=== PATIENT | female | born 1960 | race African-American/Black ===

== ENCOUNTER 2024-07-10 06:44 | Emergency (ER) | payer MEDICARE, OTHER ==
[2024-07-10 07:07] LABS: Actual Bicarbonate (HCO3v) 22.9 mEq/L (22-28); Analyzer IN Cardio CS ER; Base Excess -5.9 mEq/L (-2 - +2); Calcium, Ionized (venous) 1.18 mmol/L (1.16-1.32); Chloride (VBG) 106 mmol/L (98-106); Hematocrit-VBG 41 % (36.0-47.0); Hemoglobin (Hb) 13.8 g/dL (11.7-16.1); Potassium (VBG) 3.58 mmol/L (3.70-5.30); Puncture Site Other Site; RapidComm Collect By LAB; Sodium 142 mmol/L (133-146); pH (venous) 7.206 (7.32-7.43)
[2024-07-10] MEDS ORDERED: Aspirin Chewable 81 MG TAB ONE (07:21)
[2024-07-10] MEDS ORDERED: Nitroglycerin 0.4 MG TAB 1 EACH ONE (07:22)
[2024-07-10] MEDS ORDERED: cefTRIAXone (ROCEPHIN) 2 GM VIAL ONE (07:44)
[2024-07-10 07:55] LABS: #Basophils 0.05 10x3/uL (0.0-0.2); #Monocytes 0.39 10x3/uL (0.0-1.1); #Neutrophils 3.51 10x3/uL (1.5-8.4); %Basophils 0.7 % (0.0-2.0); %Eosinophils 1.3 % (0.0-6.0); %Lymphocytes 46.6 % (18.0-47.0); %Monocytes 5.1 % (0.0-10.0); Hematocrit 37.4 % (34.9-44.5); Hemoglobin 12.4 g/dL (12.0-15.5); Mean Corpuscular HGB CONC 33.2 g/dL (32.0-36.0); Mean Corpuscular Hemoglobin 31.9 pg (27.0-33.0); Mean Corpuscular Volume 96.1 fL (81.6-98.3); Mean Platelet Volume 10.4 fL (7.4-10.4); Platelet Count 257 10x3/uL (150-450); RBC Distribution Width 12.6 % (11.5-14.5); Red Blood Cell (RBC) Count 3.89 10x6/uL (3.90-5.03); White Blood Cell (WBC) Count 7.6 10x3/uL (3.5-10.5)
[2024-07-10 08:03] LABS: ALT (SGPT) 13 U/L (8-55); AST (SGOT) 27 U/L (5-34); Albumin 3.9 g/dL (3.4-4.8); Alkaline Phosphatase 76 U/L (40-110); Anion Gap 16 mmol/L (10-20); BUN (Urea Nitrogen) 15 mg/dL (9.8-20.1); Bilirubin, Total 0.3 mg/dL (0.2-1.2); CK (CPK) 202 U/L (29-168); Calc. Creatinine Clearance 0 mL/min (70-130); Calcium 9.3 mg/dL (7.8-10.44); Carbon Dioxide 19 mmol/L (23-31); Chloride 107 mmol/L (98-107); Estimated GFR 50; Globulin 3.3 g/dL (2.4-3.5); Glucose 176 mg/dL (80-115); Magnesium 2.5 mg/dL (1.6-2.6); Potassium 3.8 mmol/L (3.5-5.1); Protein, Total 7.2 g/dL (5.8-8.1); Sodium 138 mmol/L (136-145)
[2024-07-10 08:12] LABS: Critical Call Chem Troponin I NUR.JPM@0808
[2024-07-10 08:36] LABS: Prothrombin Time 10.4 sec (9.5-12.1)
[2024-07-10 08:47] LABS: PTT 23.2 sec (22.0-33.0)
[2024-07-10] MEDS ORDERED: Ipratropium/Albuterol 3 ML NEB ONE (08:51)
[2024-07-10] MEDS ORDERED: Heparin 25,000 units/D5W 500 ML ONE (08:59)
[2024-07-10] MEDS ORDERED: Furosemide 40 MG (4 mL) VIAL ONE (08:59)
[2024-07-10] MEDS ORDERED: Heparin 10,000 UNITS/ 10 ML VIAL ONE (08:59)
[2024-07-10] MEDS ORDERED: niCARdipine 25 MG/10 ML SDV ONE (09:00)
[2024-07-10] MEDS ORDERED: Azithromycin 500 MG VIAL ONE (10:30)
[2024-07-10 11:34] LABS: Amphetamine Not Detected (NotDetected); Barbiturates Screen Not Detected (NotDetected); Benzodiazepine Screen Not Detected (NotDetected); Cocaine Metabolite Screen Detected (NotDetected); Methadone Not Detected (NotDetected); Methamphetamine Not Detected (NotDetected); Opiate Screen Not Detected (NotDetected); Oxycodone Screen Not Detected (NotDetected); Phencyclidine (PCP) Not Detected (NotDetected); THC/Cannabinoid Screen Not Detected (NotDetected); Tricyclic Screen Not Detected (NotDetected)
== END 2024-07-10 11:21 | disposition short-term general hospital (02) ==
LOC: CSHERS 06:44
DX: I21.4 Non-ST elevation (NSTEMI) myocardial infarction (principal); I16.1 Hypertensive emergency; I11.0 Hypertensive heart disease with heart failure; I50.9 Heart failure, unspecified; F17.210 Nicotine dependence, cigarettes, uncomplicated
CPT/HCPCS: 71045; 80053; 80306; 82550; 82805; 83605; 83735; 83880; 84484; 85025; 85379; 85610; 85730; 87040; 87426; 93005; J0456; J0696; J1644 ×2; J1940; 36415; 96365; 96375; J7620